=== PATIENT | female | born 1950 | race Caucasian/White ===

== ENCOUNTER 2016-10-19 11:30 | Day surgery (SDCO) | payer OTHER ==
[~2016-10-19] VITALS: Ht 162.6 cm; Wt 119.0 kg
[2016-10-19 12:10] LABS: BILIRUBIN NEGATIVE (NEGATIVE); BLOOD NEGATIVE Ery/uL (NEGATIVE); CLARITY CLEAR (CLEAR); COLOR YELLOW (YELLOW); GLUCOSE (U) NORMAL (NORMAL); KETONE (U) NEGATIVE (NEGATIVE); LEUKOCYTES 1+ Leu/uL (NEGATIVE); NITRITE NEGATIVE (NEGATIVE); PROTEIN NEGATIVE (NEGATIVE); SPECIFIC GRAVITY 1.015 (1.001-1.030); UROBILINOGEN 0.2 mg/dL (0.2-1.0)
[2016-10-19 12:18] LABS: BACTERIA TRACE
[2016-10-19 12:54] LABS: BASOPHIL 0.5 % (0-2); HCT 41.7 % (37.0-47.0); HGB 14.1 g/dl (12.5-16.0); LYMPHOCYTE 23.8 % (15-48); MCHC 33.8 g/dL (32.0-36.0); MCV 94.6 fL (78.0-100.0); MPV 11.3 fL (6.0-9.5); NEUTROPHIL 63.7 % (41-80); PLT 191 K/uL (150-400); RBC 4.41 M/uL (4.20-5.40); RDW 13.8 % (11.5-14.0); WBC 5.7 K/uL (4.0-10.5)
[2016-10-19 12:58] LABS: ALBUMIN 4.3 g/dL (3.4-4.8); BILIRUBIN - TOTAL 0.5 mg/dL (0.1-1.0); CREATININE 0.4 mg/dL (0.5-1.0); GLOBULIN (CALCULATION) 2.8 g/dL (2.2-4.2); POTASSIUM 4.5 mmol/L (3.5-5.1); TOTAL PROTEIN 7.1 g/dL (6.4-8.3)
[2016-10-19 16:16] LABS: BASOPHIL NO PRINT 0.3 % (0-2); EOSINOPHIL NO PRINT 1.5 % (0-5); HCT 36.1 % (37.0-47.0); HGB 12.2 g/dL (12.5-16.0); LYMPHOCYTE NO PRINT 20.5 % (15-48); MCH NO PRINT 32.1 pg (25.0-31.0); MCHC NO PRINT 33.8 g/dL (32.0-36.0); MONOCYTE NO PRINT 9.8 % (0-12); MPV NO PRINT 11.4 fL (6.0-9.5); NEUTROPHIL NO PRINT 67.9 % (41-80); PLT NO PRINT 169 K/uL (150-400); RDW NO PRINT 13.7 % (11.5-14.0); WBC NO PRINT 6.5 K/uL (4.0-10.5)
[2016-10-19 17:14] LABS: INR 1.01 (0.9-1.2); PROTHROMBIN TIME 12.9 SECONDS (11.7-14.0); PTT 28.9 SECONDS (23.2-31.4)
[2016-10-19 21:09] LABS: BASOPHIL NO PRINT 0.2 % (0-2); EOSINOPHIL NO PRINT 0.3 % (0-5); HCT 38.9 % (37.0-47.0); HGB 13.3 g/dL (12.5-16.0); LYMPHOCYTE NO PRINT 14.3 % (15-48); MCH NO PRINT 32.4 pg (25.0-31.0); MCHC NO PRINT 34.2 g/dL (32.0-36.0); MCV NO PRINT 94.9 fL (78.0-100.0); MONOCYTE NO PRINT 7.1 % (0-12); MPV NO PRINT 10.9 fL (6.0-9.5); NEUTROPHIL NO PRINT 78.1 % (41-80); PLT NO PRINT 183 K/uL (150-400); RDW NO PRINT 13.7 % (11.5-14.0); WBC NO PRINT 9.4 K/uL (4.0-10.5)
[2016-10-20 04:49] LABS: BASOPHIL NO PRINT 0.3 % (0-2); EOSINOPHIL NO PRINT 1.7 % (0-5); HCT 33.3 % (37.0-47.0); HGB 11.2 g/dL (12.5-16.0); HGB 11.2 g/dl (12.5-16.0); LYMPHOCYTE NO PRINT 30.1 % (15-48); MCH 32.3 pg (25.0-31.0); MCH NO PRINT 32.3 pg (25.0-31.0); MCHC 33.6 g/dL (32.0-36.0); MCHC NO PRINT 33.6 g/dL (32.0-36.0); MPV 11.4 fL (6.0-9.5); MPV NO PRINT 11.4 fL (6.0-9.5); NEUTROPHIL NO PRINT 58.9 % (41-80); PLT 158 K/uL (150-400); PLT NO PRINT 158 K/uL (150-400); RBC 3.47 M/uL (4.20-5.40); RBC NO PRINT 3.47 M/uL (4.20-5.40); RDW 13.6 % (11.5-14.0); RDW NO PRINT 13.6 % (11.5-14.0); WBC 5.9 K/uL (4.0-10.5); WBC NO PRINT 5.9 K/uL (4.0-10.5)
[2016-10-20 05:06] LABS: CREATININE 0.4 mg/dL (0.5-1.0); POTASSIUM 3.6 mmol/L (3.5-5.1)
[2016-10-20 13:04] LABS: BASOPHIL NO PRINT 0.2 % (0-2); EOSINOPHIL NO PRINT 1.2 % (0-5); HCT 33.7 % (37.0-47.0); HGB 11.2 g/dL (12.5-16.0); LYMPHOCYTE NO PRINT 20.6 % (15-48); MCH NO PRINT 32.2 pg (25.0-31.0); MCHC NO PRINT 33.2 g/dL (32.0-36.0); MCV NO PRINT 96.8 fL (78.0-100.0); MONOCYTE NO PRINT 4.8 % (0-12); MPV NO PRINT 11.7 fL (6.0-9.5); NEUTROPHIL NO PRINT 73.2 % (41-80); PLT NO PRINT 152 K/uL (150-400); RBC NO PRINT 3.48 M/uL (4.20-5.40); RDW NO PRINT 13.6 % (11.5-14.0); WBC NO PRINT 5.7 K/uL (4.0-10.5)
[2016-10-21] MEDS ORDERED: LIPITOR80 MG PO (06:59)
[2016-10-21] MEDS ORDERED: ASPIRIN CHEWABL81 MG PO (06:59)
[2016-10-21] MEDS ORDERED: EFFEXOR XR75 MG PO (06:59)
[2016-10-21] MEDS ORDERED: PROTONIX40 MG PO (07:00)
[2016-10-21] MEDS ORDERED: SENNA S TABLET1 EACH PO (07:00)
== END 2016-10-20 16:25 | disposition home or self-care (01) ==
LOC: FER 11:30 → FMS 17:40
PROVIDERS: Internal Medicine; Nurse Practitioner Family; ADMIT Internal Medicine Adolescent Medicine
DX: K92.2 Gastrointestinal hemorrhage, unspecified (principal); E66.9 Obesity, unspecified; E78.5 Hyperlipidemia, unspecified; M19.90 Unspecified osteoarthritis, unspecified site; Z90.49 Acquired absence of other specified parts of digestive tract; Z90.89 Acquired absence of other organs; Z88.7 Allergy status to serum and vaccine; Z82.49 Family history of ischemic heart disease and other diseases of the circulatory system; Z80.9 Family history of malignant neoplasm, unspecified; Z83.6 Family history of other diseases of the respiratory system; Z79.82 Long term (current) use of aspirin; Z79.899 Other long term (current) drug therapy; Z98.890 Other specified postprocedural states
CPT/HCPCS: 36415; 80048; 80053; 81001; 82150; 83690; 85014; 85018; 85025; 85610; 85730; 86850; 86900; 86901; G0378; Q9967